=== PATIENT | female | born 1980 | race American Indian/Alaskan Native ===

== ENCOUNTER 2017-07-21 22:47 | Emergency (ER) | payer SELFPAY ==
[2017-07-21 23:03] VITALS: BP 111/61
--- NOTE | 2017-07-21 23:26 | EDM.PDOC ---
ED HPI GENERAL MEDICAL PROBLEM - General Chief Complaint: General Stated Complaint: SICK [id number] Time Seen by Provider: 07/21/17 23:00 Source of Information: Reports: Patient, RN, RN Notes Reviewed History Limitations: Reports: No Limitations - History of Present Illness INITIAL COMMENTS - FREE TEXT/NARRATIVE: Reports symptoms of cough, chills for 2 days, denies fever, no sore throat. Smoker. Offers minimal information when questioned why she presented to ED. No mention of vomiting . Noted took ibuprofen last for headache at 4pm. Frontal Headache Pain Score (Numeric/FACES): 7 - Related Data Allergies Allergy/AdvReac Type Severity Reaction Status Date / Time No Known Allergies Allergy Verified 07/21/17 23:03 Home Meds: Home Meds Ciprofloxacin [Ciprofloxacin HCl] 1 tab PO BID 07/24/14 [History] Past Medical History - Past Health History Medical/Surgical History: Denies Medical/Surgical History Social & Family History - Tobacco Use Smoking Status *Q: Current Every Day Smoker Years of Tobacco use: 5 - Alcohol Use Days Per Week of Alcohol Use: 0 - Recreational Drug Use Recreational Drug Use: No ED ROS GENERAL - Review of Systems Review Of Systems: ROS reveals no pertinent complaints other than HPI. Constitutional: Reports: Chills HEENT: Denies: Throat Pain Respiratory: Reports: Cough, Sputum Cardiovascular: Reports: No Symptoms GI/Abdominal: Reports: No Symptoms : Reports: No Symptoms Neurological: Reports: Headache ED EXAM, GENERAL - Physical Exam Exam: See Below Exam Limited By: No Limitations General Appearance: Alert, Thin, Other (pale, anxious, frequent rhythmic jaw movments, wring hands, twisting feet.) Eye Exam: Bilateral Eye: EOMI Ears: Normal External Exam, Normal TMs Nose: Normal Inspection Throat/Mouth: No: Normal Teeth (poor dentation, decay extensive) Neck: Full Range of Motion Respiratory/Chest: No Respiratory Distress, Lungs Clear, Normal Breath Sounds Cardiovascular: Normal Peripheral Pulses, Regular Rate, Rhythm GI/Abdominal: Normal Bowel Sounds Neurological: Alert, Oriented Psychiatric: Anxious, Other (easily agitated) Skin Exam: Warm, Dry, Intact, Normal Color Course - Vital Signs Last Recorded V/S: Last Vital Signs Temp 97.6 F 07/21/17 22:51 Pulse 97 07/21/17 22:51 Resp 20 07/21/17 22:51 BP 111/61 07/21/17 22:51 Pulse Ox 100 07/21/17 22:51 Departure - Departure Time of Disposition: 23:10 Disposition: Eloped 07 Condition: Undetermined Clinical Impression: Cough - Discharge Information Referrals: PCP,Unobtain [Primary Care Provider] - Forms: ED Department Discharge
== END 2017-07-21 23:11 | disposition left against medical advice (07) ==
LOC: DL.ED 22:47
DX: R05 Cough (principal); F17.200 Nicotine dependence, unspecified, uncomplicated
CPT/HCPCS: 99283

== ENCOUNTER 2022-09-26 00:25 | Emergency (ER) | payer OTHER ==
[2022-09-26] MEDS ORDERED: Ondansetron 4 MG/2 ML SDV IVPUSH ONE (00:47)
[2022-09-26] MEDS ORDERED: Sodium Chloride 0.9% 10 ML Syringe FLUSH PRN (00:47)
[2022-09-26] MEDS ORDERED: Sodium Chloride 0.9% 1,000 ML IV ONE (00:47)
[2022-09-26 00:49] VITALS: BP 142/83; PULSE 90
[2022-09-26] MEDS ORDERED: Acetaminophen 500 MG Tab PO ONE (00:51)
[2022-09-26 01:50] LABS: AMPHETAMINES,URINE NEGATIVE (NEGATIVE); BARBITURATES,URINE NEGATIVE (NEGATIVE); BENZODIAZEPINE,URINE NEGATIVE (NEGATIVE); MDMA (ECSTASY), URINE NEGATIVE (NEGATIVE); METHADONE,URINE NEGATIVE (NEGATIVE); METHAMPHETAMINES,URINE NEGATIVE (NEGATIVE); OPIATES,URINE NEGATIVE (NEGATIVE); OXYCODONE,URINE NEGATIVE (NEGATIVE); PHENCYCLIDINE,URINE NEGATIVE (NEGATIVE); TCA,URINE NEGATIVE (NEGATIVE)
[2022-09-26 01:50] LABS: ANION GAP 11.6 mEq/L (7-13)
[2022-09-26 02:12] LABS: CORONAVIRUS COVID-19 NAA POSITIVE (NEGATIVE)
[2022-09-26] MEDS ORDERED: Ciprofloxacin 500 MG Tab PO ONE (02:19)
== END 2022-09-26 03:14 | disposition home or self-care (01) ==
LOC: DL.ED 00:25
DX: U07.1 COVID-19 (principal); N30.00 Acute cystitis without hematuria; D50.9 Iron deficiency anemia, unspecified; F17.210 Nicotine dependence, cigarettes, uncomplicated; Z79.899 Other long term (current) drug therapy
CPT/HCPCS: 0240U; 36415; 80053; 80305; 81001; 81025; 83540; 84443; 85025; 87086; 96361; 96374; 99283; A9270; J2405; J3490; J7030

== ENCOUNTER 2022-09-27 16:55 | Emergency (ER) | payer OTHER ==
[2022-09-27 17:58] VITALS: BP 115/66; PULSE 103
[2022-09-27] MEDS ORDERED: Ketorolac 30 MG/ML SDV IM ONE (18:44)
[2022-09-27] MEDS ORDERED: Ondansetron 4 MG Tab.DIS PO ONE (18:45)
== END 2022-09-27 19:10 | disposition home or self-care (01) ==
LOC: DL.ED 16:55
DX: U07.1 COVID-19 (principal)
CPT/HCPCS: 96372; 99283; A9270; J1885

== ENCOUNTER 2024-06-18 14:34 | Emergency (ER) | payer OTHER ==
[2024-06-18 15:03] VITALS: BP 121/71; PULSE 85
== END 2024-06-18 15:32 | disposition left against medical advice (07) ==
LOC: DL.ED 14:34
DX: R51.9 Headache, unspecified (principal); R42 Dizziness and giddiness; F17.210 Nicotine dependence, cigarettes, uncomplicated; Z86.16 Personal history of COVID-19
CPT/HCPCS: 87804; 99283; 99284; U0002